=== PATIENT | female | born 1980 | race Caucasian/White ===

== ENCOUNTER 2023-08-15 13:00 | Emergency (ER) | payer SELFPAY ==
[2023-08-15 14:05] LABS: BASE EXCESS VENOUS -4.5 mm/L; BICARBONATE,VENOUS 20.3 mmol/L; CARBOXYHEMOGLOBIN 2.2 % (0.0-1.6); METHEMOGLOBIN 1.3 %; O2 SATURATION VENOUS 32.7; OXYHEMOGLOBIN 31.6 %; PCO2 VENOUS 38.3 mm/Hg; PH,VENOUS 7.343 (7.350-7.450); TOTAL HEMOGLOBIN 13.3 g/dL (12.0-16.0)
[2023-08-15 14:07] LABS: PO2 VENOUS 23.9 mm/Hg
[2023-08-15 14:11] LABS: BASOPHILS ABSOLUTE AUTO 0.03 K/uL (0.00-0.10); BASOPHILS PERCENT AUTO 0.2 % (0.1-1.3); EOSINOPHILS ABSOLUTE AUTO 0.06 K/uL (0.00-0.40); EOSINOPHILS PERCENT AUTO 0.5 % (0.0-5.4); HEMATOCRIT 37.9 % (34.3-46.0); HEMOGLOBIN 12.7 g/dL (11.2-15.5); IMMATURE GRAN ABSOLUTE AUTO 0.06 K/uL (0.00-0.23); IMMATURE GRAN PERCENT AUTO 0.5 % (0.0-0.7); LYMPHOCYTES ABSOLUTE AUTO 1.55 K/uL (0.8-3.3); LYMPHOCYTES PERCENT AUTO 12.9 % (11.4-47.7); MEAN CORPUSCULAR HEMOGLOBIN 30.5 pg (31.6-35.5); MEAN CORPUSCULAR HGB CONC 33.5 g/dL (31.6-35.5); MEAN CORPUSCULAR VOLUME 91.1 fL (81.4-99.0); NEUTROPHILS ABSOLUTE AUTO 9.73 K/uL (1.0-7.6); NEUTROPHILS PERCENT AUTO 80.9 % (40.0-78.1); PLATELET COUNT,PLT 313 K/uL (130-375); RED BLOOD CELL COUNT 4.16 M/uL (3.77-5.24)
[2023-08-15 14:14] LABS: APPEARANCE,URINE CLOUDY (CLEAR); BILIRUBIN,URINE NEGATIVE (NEGATIVE); COLOR,URINE YELLOW (YELLOW); GLUCOSE,URINE 500 mg/dL (NEGATIVE); KETONES,URINE 80 mg/dL (NEGATIVE); LEUKOCYTE ESTERASE,URINE SMALL (NEGATIVE); NITRITE,URINE NEGATIVE (NEGATIVE); OCCULT BLOOD,URINE MODERATE (NEGATIVE); PROTEIN,URINE NEGATIVE (NEGATIVE); UROBILINOGEN,URINE 0.2 EU/dL (0.2-1.0)
[2023-08-15 14:26] LABS: AMORPHOUS SEDIMENT,URINE NOT SEEN; BACTERIA,URINE MODERATE; EPITHELIAL CELLS,URINE FEW; MUCUS,URINE RARE; RBC,URINE 0-5 (0-5); WBC,URINE 20-30 (0-5)
[2023-08-15 14:39] LABS: A/G RATIO 0.9 (1.2-2.2); ALANINE AMINOTRANSFERASE,ALT 14 U/L (12-78); ALBUMIN 3.7 g/dL (3.4-5.0); ALKALINE PHOSPHATASE 84 U/L (46-116); ASPARTATE AMNIOTRANSFERASE,AST 7 U/L (15-37); BILIRUBIN TOTAL 0.5 mg/dL (0.2-1.0); BLOOD UREA NITROGEN,BUN 29 mg/dL (7-18); CARBON DIOXIDE,CO2 22 mmol/L (21-32); CHLORIDE,CL 92 mmol/L (100-108); CREATININE 1.4 mg/dL (0.6-1.0); EST CRCL DRUG DOSING (CG) 40.04 mL/min; ESTIMATED GFR 48 mL/min (>60); POTASSIUM,K 5.2 mmol/L (3.6-5.2); SODIUM,NA 127 mmol/L (140-148)
[2023-08-15 14:44] LABS: ANION GAP 18.2 mmol/L (5.0-14.0)
[2023-08-15 14:45] LABS: GLUCOSE RANDOM 557 mg/dL (74-106)
[2023-08-15] MEDS ORDERED: Sodium Chloride 0.9% 1,000 ML IV ONE (14:50)
[2023-08-15] MEDS ORDERED: Insulin Glargine,Human Rec. Analog 100 Units/ML 3 ML Pen SUBCUT ONE (14:55)
[2023-08-15] MEDS ORDERED: 50% Dextrose in Water 50 ML Syringe IVPUSH PRN ×2 (14:55→17:10)
[2023-08-15] MEDS ORDERED: Glucagon,Human Recombinant 1 MG Vial IM PRN ×2 (14:55→17:10)
[2023-08-15] MEDS ORDERED: Sodium Chloride 0.9% 1,000 ML IV SCH (15:00)
[2023-08-15] MEDS ORDERED: Nitrofurantoin Monohydrate/Macrocrystalline 100 MG Cap PO ONE (16:28)
[2023-08-15] MEDS ORDERED: Insulin Lispro 100 Unit/ML 3 ML KwikPen SUBCUT ONE (17:10)
[2023-08-15] MEDS ORDERED: Fluconazole 150 MG Tab PO ONE (17:31)
[2023-08-15 17:36] LABS: CALCIUM 8.2 mg/dL (8.5-10.1); CREATININE 1.3 mg/dL (0.6-1.0); EST CRCL DRUG DOSING (CG) 43.12 mL/min; POTASSIUM,K 4.7 mmol/L (3.6-5.2)
[2023-08-15 17:37] LABS: ANION GAP 14.7 mmol/L (5.0-14.0)
== END 2023-08-15 18:27 | disposition home or self-care (01) ==
LOC: JP.ED 13:00
DX: E10.65 Type 1 diabetes mellitus with hyperglycemia (principal); B37.31 Acute candidiasis of vulva and vagina; K21.9 Gastro-esophageal reflux disease without esophagitis; E03.9 Hypothyroidism, unspecified; F17.210 Nicotine dependence, cigarettes, uncomplicated; Z79.899 Other long term (current) drug therapy; Z88.0 Allergy status to penicillin; Z88.1 Allergy status to other antibiotic agents; Z88.2 Allergy status to sulfonamides; Z91.040 Latex allergy status
CPT/HCPCS: 36415; 80048; 80053; 81001; 82009; 82150; 82803; 83605; 83690; 83735; 85025; 87086; 96360; 96361; 99285; A9270; J1815; J7030